=== PATIENT | female | born 1995 | race Caucasian/White ===

== ENCOUNTER 2020-09-07 21:14 | Observation (INO) | payer BC ==
[2020-09-08 01:19] VITALS: BMI 34.9
[2020-09-08] MEDS ORDERED: Acetaminophen 325 MG TAB PO PRN ×2 (01:45→03:49)
[2020-09-08] MEDS ORDERED: Ondansetron ODT 4 MG TAB SL PRN (01:45)
[2020-09-08] MEDS ORDERED: Sodium Chloride 0.9% 1,000 ML IV SCH (01:45)
[2020-09-08] MEDS: Ondansetron PF 4 MG/2 ML Vial IVP PRN ×2 (01:55→07:57)
[2020-09-08] MEDS: Promethazine HCl 25 MG in Sodium Chloride 0.9% 50 ML IVPB PRN ×2 (02:59→09:46)
[2020-09-08] MEDS ORDERED: HYDROcodone/Acetaminophen 5/325 mg Tablet PO PRN ×2 (03:49)
--- NOTE | 2020-09-08 03:50 | PDOC.HHP ---
Hospitalist HPI - History of Present Illness n/v History of Present Illness: Case of an 25y/o female with no pmhx who comes to hospital due to intractable nausea and vomiting. she states she was on her usuals state of health until yesterday when she started with the nausea and vomiting. she states had over 10 episodes of vomiting for which she decided to come to ED for evaluation. There patient was treated for 6 hours there with zofran ivfs and ppis w/o resolution of symptoms for which she was transfered to this institution for further evaluation and management. patient denies fever chills dysuria diarrhea or cough. patient denies any alcohol or drug use, also states this has happened before and was prescribed reglan which she states if used at the beginning of symptoms usually controls them well. Hospitalist ROS - Review of Systems All other systems reviewed; all pertinent +/- noted in HPI/Subj - Medication Medications: Active Medications Generic Name Dose Route Start Last Admin Trade Name Freq PRN Reason Stop Dose Admin Sodium Chloride 1,000 mls @ 250 mls/hr 09/08/20 01:45 09/08/20 01:59 Normal Saline 0.9% IV 09/08/20 10:10 1,000 mls .Q4H AMBAR Administration Promethazine HCl 25 mg/ Sodium 51 mls @ 204 mls/hr 09/08/20 02:46 09/08/20 02:59 Chloride IVPB 51 mls Q6H PRN Administration Nausea Ondansetron HCl 4 mg 09/08/20 01:45 09/08/20 01:55 Ondansetron Pf 4 Mg/2 Ml Vial IVP 09/08/20 10:10 4 mg Q6H PRN Administration Nausea/Vomiting Hospitalist History - Past Surgical History Past Surgical History: reports: no pertinent history - Family History Family History: reports: no pertinent history - Social History Smoking Status: Never smoker Alcohol: reports: None Drugs: reports: none - Exam General Appearance: NAD, awake alert Eye: PERRL, anicteric sclera ENT: normocephalic atraumatic, no oropharyngeal lesions, dry oral mucosa Neck: supple, symmetric, no JVD, no thyromegaly Heart: RRR, no murmur, no gallops, no rubs Respiratory: CTAB, no wheezes, no rales, no ronchi Gastrointestinal: soft, non-tender, non-distended, normal bowel sounds Extremities: no cyanosis, no clubbing, no edema Skin: normal turgor, no lesions, no rashes Neurological: cranial nerve grossly intact, normal sensation to touch, no weakness Musculoskeletal: normal tone, normal strength, no muscle wasting Psychiatric: normal affect, normal behavior, A&O x 3 Hospitalist H&P A/P - Problem (1) Intractable nausea and vomiting Code(s): R11.2 - NAUSEA WITH VOMITING, UNSPECIFIED Status: Acute (2) Dehydration Code(s): E86.0 - DEHYDRATION Status: Acute - Plan Plan: Case of an 25y/o female with no pmhx who presents with intractable nausea and vomiting intrable nause and vomiting / dehydration - lipase normal - does have leukocytosis in the 17k, likely secondary to stress of vomiting - u/a w/o infection but with positive ketones - will treat with ivfs d5w with ns - mild metabolic acidosis with normal anion gap, likely secondary to vomiting - normal kub - ppis - zofran + reglan iv - states was hanging out with friends yesterday but denies any alcohol or drugs use, consider drug test if needed - has subcutaneous contraceptive
[2020-09-08 04:25] LABS: SARS-CoV-2 MS2 Positive; SARS-CoV-2 N Gene Negative; SARS-CoV-2 S Gene Negative; SARS-CoV-2 by NAA Not Detected (NotDetected); SARS-CoV-2 orf1ab Negative
[2020-09-08] MEDS: Dextrose 5 % And 0.9 % NaCl 1,000 ML IV SCH ×2 (04:30→13:13)
[2020-09-08] MEDS ORDERED: Chloraseptic Spray 180 ml Bottle PO PRN ×2 (07:55→12:19)
[2020-09-08] MEDS ORDERED: Famotidine/PF 20 mg/2ml Vial SLOW IVP SCH (09:00)
[2020-09-08] MEDS ORDERED: Enoxaparin Sodium 40 MG/0.4 ML SYRINGE SC SCH (09:00)
--- NOTE | 2020-09-08 12:13 | PDOC.HOSPP ---
- Subjective Encounter Date: 09/08/20 Encounter Time: 11:30 Subjective: Ms. Herrera reports sore throat 2/2 vomiting. No current nausea or vomiting. 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 Currently able to hold down water. She has esplant, had a similar episodes over a year ago and resolved with Reglan as well as other antiemetics. So for the last 1 year she did not had symptoms. Patient denies polyuria polydipsia weight gain recently. No family history of diabetes. And she is not diabetic. Denies marijuana use. - Objective Vital Signs & Weight: Vital Signs (12 hours) Temp Pulse Resp BP BP Pulse Ox 09/08/20 12:00 98.1 F 57 L 18 114/68 98 09/08/20 08:00 98.0 F 73 20 148/98 H 97 09/08/20 07:44 98.0 F 73 20 148/98 H 97 09/08/20 00:52 98.4 F 85 16 100/65 99 Weight Weight 216 lb 4 oz I&O: 09/07/20 09/08/20 09/09/20 06:59 06:59 06:59 Intake Total 950 Balance 950 Hospitalist ROS - Review of Systems Constitutional: reports: other. denies: fever, chills, sweats Respiratory: denies: cough, shortness of breath, SOB with excertion, sputum Cardiovascular: denies: chest pain Gastrointestinal: denies: nausea, vomiting, abdominal pain, diarrhea, constipation Genitourinary: denies: dysuria - Medication Medications: Active Medications Generic Name Dose Route Start Last Admin Trade Name Freq PRN Reason Stop Dose Admin Enoxaparin Sodium 40 mg 09/08/20 09:00 09/08/20 08:00 Enoxaparin Sodium 40 Mg/0.4 Ml Syringe SC Not Given 0900 AMBAR Famotidine 20 mg 09/08/20 09:00 09/08/20 07:59 Famotidine/Pf 20 Mg/2ml Vial SLOW IVP 20 mg Q12HR AMBAR Administration Promethazine HCl 25 mg/ Sodium 51 mls @ 204 mls/hr 09/08/20 02:46 09/08/20 09:46 Chloride IVPB 51 mls Q6H PRN Administration Nausea Dextrose/Sodium Chloride 1,000 mls @ 125 mls/hr 09/08/20 04:00 09/08/20 04:30 D5 0.9% Ns IV 1,000 mls .Q8H AMBAR Administration Phenol 0 ml 09/08/20 07:55 09/08/20 08:27 Chloraseptic Ashley 180 Ml Bottle PO 1 spray TIDPRN PRN Administration SORE THROAT - Exam General Appearance: awake alert Eye: PERRL, anicteric sclera ENT: no oropharyngeal lesions Heart: RRR, no murmur, no gallops, no rubs, normal peripheral pulses Respiratory: CTAB, no wheezes, no rales, no ronchi Gastrointestinal: soft, non-tender, non-distended, normal bowel sounds Psychiatric: normal affect Hosp A/P (1) Dehydration Code(s): E86.0 - DEHYDRATION Status: Acute (2) Intractable nausea and vomiting Code(s): R11.2 - NAUSEA WITH VOMITING, UNSPECIFIED Status: Acute - Plan Nausea and vomiting - continue Promethazine and Odansetron - NPO except water -Ruled out acute gastroenteritis based on hx - Ruled out - Ruled out GERD based on hx - r/o thyroid abnormalities - TSH (0.56) - r/o cannabanoid hyperemesis syndrome based on hx; awaiting urine drug sccreen -ruling out diabeteic gastroparesis - awaiting HgA1c Dehydration - continue D5W/ NS @125 ml/hr - encourage clear liquid diet Covid negative Trial of starting her on clear liquid diet and advance as tolerated. With the supportive measures hopefully she will get better. If this episode repeats again in the near future consider GI evaluation at that time. Collect CBC and CMP tomorrow AM DVT prophylaxis - encourage ambulation - continue SCDs
[2020-09-08 14:34] LABS: Bilirubin Negative (Negative); Blood, Urine Negative (Negative); Clarity Clear (Clear); Glucose, Urine (Dipstick) Normal (Negative); Ketone, Urine 80 mg/dL (Negative); Leukocyte Negative Leu/uL (Negative); Nitrite Negative (Negative); Protein, Urine (Dipstick) Negative (Neg-Trace); Specific Gravity, Urine 1.015 (1.002-1.036); Urobilinogen Normal mg/dL (Less than 2)
[2020-09-08 14:43] LABS: Amphetamine Not Detected (NotDetected); Benzodiazepine Screen Not Detected (NotDetected); Cocaine Metabolite Screen Not Detected (NotDetected); Medtox Reader # READER 1; Methadone Not Detected (NotDetected); Methamphetamine Not Detected (NotDetected); Opiate Screen Not Detected (NotDetected); Phencyclidine (PCP) Not Detected (NotDetected); THC/Cannabinoid Screen Detected (NotDetected); Tricyclic Screen Not Detected (NotDetected)
[2020-09-08 14:44] LABS: Barbiturates Screen Not Detected (NotDetected); Medtox Control Line Valid? VALID (VALID); Oxycodone Screen Not Detected (NotDetected)
[2020-09-08 16:20] VITALS: BP 124/72; TEMP 98
--- NOTE | 2020-09-08 17:23 | PDOC.DS.DS ---
Provider - Provider Date of Admission: 09/07/20 21:14 Admitting Provider: Williams Vizcarra Primary Care Physician: NO PCP PROVIDER Course - Hospital Course Hospital Course: 25 YOF presented wtih (1) Dehydration Code(s): E86.0 - DEHYDRATION Status: Acute (2) Intractable nausea and vomiting Code(s): R11.2 - NAUSEA WITH VOMITING, UNSPECIFIED Status: Acute Nausea and vomiting - continue Promethazine and Odansetron - NPO except water -Ruled out acute gastroenteritis based on hx - Ruled out - Ruled out GERD based on hx - r/o thyroid abnormalities - TSH (0.56) - r/o cannabanoid hyperemesis syndrome based on hx; awaiting urine drug sccreen -ruling out diabeteic gastroparesis - awaiting HgA1c Dehydration - continue D5W/ NS @125 ml/hr - encourage clear liquid diet Covid negative Trial of starting her on clear liquid diet and advance as tolerated. With the supportive measures hopefully she will get better. If this episode repeats again in the near future consider GI evaluation at that time. Collect CBC and CMP tomorrow AM 30 evening pt wants to leave home. does not want to stay. cannabis positive in UDS. zofran prescribed and discharged. Resuscitation Status: 09/08/20 03:49 Resuscitation Status Routine Resuscitation Status: FULL: Full Resuscitation - Labs Lab Results: Abnormal Lab Results - Last 48 hrs 09/08/20 13:40: U Cannabinoids Screen Detected H 09/08/20 13:40: Urine Ketones 80 A - Physical Exam Vitals: Vital Signs (12 hours) Temp Pulse Resp BP BP Pulse Ox 09/08/20 16:18 98.0 F 64 18 124/72 98 09/08/20 12:00 98.1 F 57 L 18 114/68 98 09/08/20 08:00 98.0 F 73 20 148/98 H 97 09/08/20 07:44 98.0 F 73 20 148/98 H 97 Weight Weight 216 lb 4 oz Physical Exam: The patient was seen and examined on the day of discharge. Problem - Problem (1) Dehydration Code(s): E86.0 - DEHYDRATION Status: Acute (2) Intractable nausea and vomiting Code(s): R11.2 - NAUSEA WITH VOMITING, UNSPECIFIED Status: Acute Plan - Discharge Medications Prescriptions: Ondansetron HCl [Zofran] 4 mg PO Q6HR PRN 7 Days #20 tab PRN Reason: Nausea/Vomiting Home Medications: Medication Instructions Recorded Confirmed Type Ondansetron HCl [Zofran] 4 mg PO Q6HR PRN 7 Days #20 tab 09/08/20 Rx Allergies: No Known Allergies Allergy (Unverified 09/08/20 00:44) - Discharge Instructions Discharge Instructions:: Notify your doctor if you experience any: -temperature greater than 100.4F -nausea/vomiting -inability to keep food or fluids down -shortness of breath or chest pain that is unrelieved with rest -questions or concerns that you may have. - Follow up Plan Referrals: PROVIDER,NO PCP [Primary Care Provider] - 7 Days (Call after discharge to schedule followup appointment. ) Disposition: HOME Quality - Care Measures CORE MEASURES:: N/A
== END 2020-09-08 18:08 | disposition home or self-care (01) ==
LOC: ONC 21:14
PROVIDERS: ADMIT Internal Medicine; ATTEND Internal Medicine
DX: E86.0 Dehydration (principal); R11.2 Nausea with vomiting, unspecified; D72.829 Elevated white blood cell count, unspecified; E87.2 Acidosis; Z20.828 Contact with and (suspected) exposure to other viral communicable diseases
CPT/HCPCS: 36415; 80306; 81003; 84443; 87635; 96374; 96375; 96376; G0378; J2405; J2550; Q0162; S0028; U0003